=== PATIENT | male | born 1975 | race Caucasian/White ===

== ENCOUNTER 2018-01-19 19:33 | Inpatient (IN) | payer MEDICAID, MEDICARE ==
[2018-01-19 20:21] LABS: ABS Basophils 0.1 10^3/ul (0-0.2); ABS Eosinophils 0.1 10^3/ul (0-0.6); ABS Lymphocytes 2.2 10^3/ul (1.0-4.8); ABS Monocytes 0.4 10^3/ul (0-0.8); ABS Neutrophils 4.6 10^3/ul (1.5-7.7); ABS Nucleated RBC 0 10^3/ul; Eosinophil % 1.8 % (0-6); Hematocrit 38 % (42-52); Hemoglobin 13.6 g/dl (14.0-18.0); Lymphocyte % 29.6 % (25-47); Mean Corpuscular HGB Conc 36 g/dl (31-36); Mean Corpuscular Hemoglobin 35 pg (27-31); Mean Corpuscular Volume 97 fL (80-94); Mean Platelet Volume 7.2 um3 (7.4-10.4); Nucleated Red Blood Cells % 0.1; Platelet Count 206 10^3/ul (150-450); Red Blood Count 3.93 10^6/ul (4.00-5.40); Red Cell Distribution Width 13 % (10.5-15); White Blood Count 7.4 10^3/ul (3.5-10.8)
--- NOTE | 2018-01-19 20:22 | ED ---
Psychiatric Complaint - HPI Summary HPI Summary: This patient is a 42 year old M presenting to [facility] with a chief complaint of depression for 1.5 years. He endorses recent insomnia, and feels subjectively ( he) is functioning less and less well. He also endorses racing and tangential thinking, visual hallucinations, paranoia, delusions, and SI with a borderline plan to walk on the edge of a bridge for shits and giggles. He denies HI .PMHx bipolar disorder, anxiety, but no Rx since 3 or 4 years ago; he stopped because he felt he was overmedicated. PT denies PMHx HTN, DM. He claims he drank a beer before he came in to the ED today. He notes he is a heavy smoker. - History Of Current Complaint Chief Complaint: EDMentalHealth Time Seen by Provider: 01/19/18 20:00 Hx Obtained From: Patient Onset/Duration: Gradual Onset, Lasting Weeks, Still Present Timing: Constant Severity Initially: Mild Severity Currently: Mild Character: Manic, Depressed, Anxious Aggravating Factor(s): Medication Non-compliance Alleviating Factor(s): Nothing Associated Signs And Symptoms: Positive: Hallucinating, Paranoid Behavior, Sleep Disturbance Related History: Positive For: Prior Psychiatric Issues Has Suicidal: Reports: Thoughts, With A Plan Has Homicidal: Denies: Thoughts - Allergies/Home Medications Allergies/Adverse Reactions: Allergies Allergy/AdvReac Type Severity Reaction Status Date / Time No Known Allergies Allergy Verified 01/19/18 19:48 PMH/Surg Hx/FS Hx/Imm Hx Endocrine/Hematology History: Denies: Hx Sickle Cell Disease Cardiovascular History: Denies: Hx Pacemaker/ICD Respiratory History: Denies: Hx Lung Cancer GI History: Denies: Hx Ileostomy History: Denies: Hx Dialysis Musculoskeletal History: Denies: Hx Osteoporosis Sensory History: Denies: Hx Legally Blind, Hx Deafness Opthamlomology History: Denies: Hx Legally Blind EENT History: Denies: Hx Deafness Neurological History: Denies: Hx Dementia Psychiatric History: Reports: Hx Anxiety, Hx Bipolar Disorder Infectious Disease History: No Infectious Disease History: Denies: Traveled Outside the [place] in Last 30 Days - Social History Lives: Alone Review of Systems Negative: Fever Positive: no symptoms reported Positive: Depressed, Other - SI, hallucinations, delusions, tangential and racing thoughts. All Other Systems Reviewed And Are Negative: Yes Physical Exam - Summary Physical Exam Summary: Appearance: Well appearing, no pain distress Skin: warm, dry, reflects adequate perfusion Head/face: normal Eyes: EOMI, JILL ENT: normal Neck: supple, non-tender Respiratory: CTA, breath sounds present Cardiovascular: RRR, pulses symmetrical Abdomen: non-tender, soft Bowel: present Musculoskeletal: normal, strength/ROM intact Neuro: normal, sensory motor intact, A&Ox3 PSYCH: depressed affect Triage Information Reviewed: Yes Vital Signs On Initial Exam: Initial Vitals Temp Pulse Resp BP Pulse Ox 99.1 F 84 16 155/94 97 01/19/18 19:43 01/19/18 19:43 01/19/18 19:43 01/19/18 19:43 01/19/18 19:43 Vital Signs Reviewed: Yes Diagnostics - Vital Signs Vital Signs Temp Pulse Resp BP Pulse Ox 01/19/18 19:43 99.1 F 84 16 155/94 97 - Laboratory Result Diagrams: 01/19/18 20:12 01/19/18 20:12 Lab Statement: Any lab studies that have been ordered have been reviewed, and results considered in the medical decision making process. Course/Dx - Course Course Of Treatment: A 42-year-old M presents to the ED with a CC of depression for 1.5 years. (+) SI, visual hallucinations, confusion, tangential thinking, racing thoughts, paranoia, delusions. (-) HI. PMHx bipolar disorder, anxiety. - Differential Dx/Clinical Impression Differential Diagnosis/HQI/PQRI: Positive: Depression, Suicidal Ideation Provider Diagnosis: Depression, Suicidal ideation Discharge - Sign-Out/Discharge Documenting (check all that apply): Sign-Out Patient Signing out patient TO: Abel Irwin - [facility] - Discharge Plan - Attestation Statements Document Initiated by Scribe: Yes Documenting Scribe: Clay Bazan Provider For Whom Tosha is Documenting (Include Credential): Dr. Young Watts MD Scribe Attestation: Clay Diana, scribed for Dr. Young Watts MD on 01/19/18 at 2144. Scribe Documentation Reviewed: Yes Provider Attestation: The documentation as recorded by the Clay martinez accurately reflects the service I personally performed and the decisions made by , Dr. Young Watts MD
[2018-01-19 20:40] LABS: EGFR Non-African American 88.7 (>60)
[2018-01-19 21:53] LABS: Urine Appearance Clear; Urine Blood Negative (Negative); Urine Color Yellow; Urine Ketones Negative (Negative); Urine Protein Negative (Negative); Urine Specific Gravity 1.019 (1.010-1.030); Urine Urobilinogen Negative (Negative)
[2018-01-20] MEDS ORDERED: hydrOXYzine HCL TAB* 50 MG PO PRN (15:30)
[2018-01-20] MEDS ORDERED: Mouth Piece, Nicotine* 1 EACH CARTRIDGE INH SCH (15:54)
--- NOTE | 2018-01-20 16:01 | HP ---
H&P (Free Text) History and Physical: JUSTIFICATION FOR ADMISSION: Patient presented to emergency room with disorganized and delusional thinking, irritable and unable to care for self. He requires inpatient psychiatric admission in order to provide treatment and stabilization as he is a danger to himself. Source Of information: Patient, chart CHIEF COMPLAINT: "I could not function out there HISTORY OF THE PRESENT ILLNESS: Patient is a 42 y/o male, single, living in a van, on the road, unemployed, with history of Bipolar disorder. Patient was admitted to inpatient unit for worsening of manic symptoms with disorganized and delusional thinking. Patient has been non-compliant with his treatment since 2012. Patient reportedly was doing fair until recently when he lost his residence and work has been going through major difficulties in his life. Patient reported having residual symptoms of Bipolar Disorder which has worsened in last few months. Patient was in the town of [place] in search of work but was unable to function. Patient has been fluctuating between depressions, ayaka and worsening of psychotic symptoms with disorganized thinking and paranoia. Patient self-presented to E.D for further treatment. Patient denied any suicidal at this time but do get it intermittently when depressed but no intent or plan. Patient reported no homicidal ideation on the unit. Patient continued to exhibit behavior that is unpredictable and reportedly this morning required multiple redirections as he was intrusive and getting into his roommates belongings. PAST PSYCHIATRIC HISTORY: Patient has history of multiple inpatient psychiatric hospitalization but was not forthcoming with details but did report last one was in 2008. Patient has history of outpatient psychiatric treatment for his Bipolar Disorder. Patients medications have been [place], Lamictal and also have been on antipsychotic. Patient was not happy with antipsychotics because of its side effect profile but agree to take it for short term. Patient reports once he had cut himself around eye brow area and face when he was intoxicated with alcohol and fined it out when he woke up with blood around him. Patient otherwise did reports periodic suicidal thoughts but not report of any suicidal intent or plan even during that time and was surprised that he did that. Patient has history of suicidal thoughts but no attempt or plan. Patient has history of no homicidal threats, no intent or attempt. Patient has history of aggressive and agitated behavior when decompensates. No access to firearm reported. SUBSTANCE ABUSE HISTORY: Patient uses Alcohol infrequently and has not used it for about last one month. But patient did report in the E.D that he has used it before presentation to E.D. Patient BAL was <10 and urine toxicology was negative. Patient was not cooperative with other substance abuse history and treatment. PAST MEDICAL HISTORY: No active medical problems ALLERGIES: NKA FAMILY PSYCHIATRIC HISTORY: Patient has unknown family history of psychiatric illness. FAMILY/PSYCHOSOCIAL HISTORY: Patient currently lives in [place] and reports last stable living condition was about 2 months ago. Patient would not disclose further information about his previous residence. Patient reports being on the road was about 2 months ago and came to [place] in search of work. Patient is not . Patient is not sure but was told by a female that he was with in the past that he might be the father of her child. Patient education level is some college. Patient was not cooperative with his family history. Patient reports being on his own for now and did not give out any information on support system but did report at one time about his interaction with father that treated his brother better than him. REVIEW OF SYSTEMS: Patients review of symptoms was negative for any physical complaint. But patients vital sign has been stable. Patients ED physical exam was reviewed which is grossly normal with no active medical problem. Physical Exam Summary: Appearance: Well appearing, no pain distress Skin: warm, dry, reflects adequate perfusion Head/face: normal Eyes: EOMI, JILL ENT: normal Neck: supple, non-tender Respiratory: CTA, breath sounds present Cardiovascular: RRR, pulses symmetrical Abdomen: non-tender, soft Bowel: present Musculoskeletal: normal, strength/ROM intact Neuro: normal, sensory motor intact, A&Ox3 MENTAL STATUS EXAMINATION: Appearance: patient is 42 y/o male, wearing hospital gown, making intermittent eye contact, fair hygiene, disheveled. Behavior: disorganized needs redirections Gait: normal Abnormal motor activity: restless, but no abnormal movement Speech: rapid, over productive, but normal volume and tone Mood: not good Affect: Affect was labile, irritable Thought process: tangential to circumstantial Thought Content: Suicidal/Homicidal ideation: denied at the time of evaluation Delusions: paranoid Obsessions: none Phobia: none Perceptual disturbance: none at time of evaluation Attention: limited Orientation: grossly intact Concentration: limited Memory: was guarded, hence unable to assess that well Insight: poor Judgment: poor Impulse control: fair during evaluation IMPRESSION: Patient with history of Bipolar Disorder. Patient currently admitted due to worsening of his manic symptoms and disorganized and delusional thinking. Patient has not been on any treatment for last few years and also struggles with his current psychosocial stressors including homelessness and unemployment. Patient is a danger to self and others if discharged hence will be stabilized on inpatient unit with medication adjustments and therapy. DIAGNOSES: Bipolar Disorder, current episode manic with psychotic features Prov : Schizoaffective Disorder Bipolar type PLAN: Admit to [facility] on Q 15 min observation. Patient is full code. Patient is on involuntary admission status Integrate patient into the milieu Individual and group psychotherapy MMPI and psychological consult with Dr. Beatty. Social work consult for therapy and discharge planning Patient gave informed consent to start the following medications: Patient was started on [place] 450 mg BID with plan to obtain [place] level on Tuesday morning. Patient was also started on Zyprexa 10 mg QHS to help with insomnia and delusional and disorganized thinking. Also hydroxyzine was started 50 mg PO Q6HRS PRN for anxiety and insomnia. Will continue to monitor and f/u for improvement and side effects. Keshav Elizabeth MD Attending Psychiatrist
[2018-01-20] MEDS: Lithium Carbonate TAB* 300 MG PO SCH ×2 (18:19→21:31)
[2018-01-20] MEDS ORDERED: Lithium Carbonate TAB* 300 MG PO SCH (21:00)
[2018-01-20] MEDS ORDERED: Nicotine Patch Removal NOTE PATCH OFF SCH (21:00)
[2018-01-20] MEDS: OLANzapine TAB* 10 MG PO SCH (21:31)
[2018-01-21] MEDS ORDERED: Nicotine PATCH 7 MG/24 HR* PATCH TRANSDERM SCH (08:00)
[2018-01-21] MEDS: Lithium Carbonate TAB* 300 MG PO SCH ×2 (08:52→21:43)
--- NOTE | 2018-01-21 17:04 | PN ---
Subjective - Subjective Date of Service: 01/21/18 Service Type: 87120 Hosp care 15 min low complexity Subjective: Juan Alberto continues to be symptomatic and staying to self in his room most of the time. Reports that his anxiety is somewhat better and he slept better last night. Mind is still racing but better then yesterday. Denies hallucinations, delusions, SI or HI. Tolerating mood stabilizer well. Objective - Appearance Appearance: Healthy Appearing Dysmorphic Features: No Hygiene: Normal Grooming: Disheveled - Behavior Psychomotor Activities: Normal Exhibits Abnormal Movement: No - Attitude and Relatedness Attitude and Relatedness: Cooperative Eye Contact: Fair - Speech Quality: Pressured Latencies: Short Quantity: Terse - Mood Patient's Decription of Mood: "Fine" - Affect Observed Affect: Good Affect Consistent with: Dysphoria - Thought Process Patient's Thought Process: Coherent, Circumstantial Thought Content: No Passive Wish, No Suicidal Planning, No Homicidal Ideation, No Paranoid Ideation - Sensorium Experiencing Hallucinations: No, Sensorium is Clear Type of Hallucinations: Visual: No, Auditory: No, Command: No - Level of Consciousness Level of Consciousness: Alert Orientation: Yes Intact, Yes Orientated to Time, Yes Orientated to Place, Yes Orientated to Person - Impulse Control Impulse Control: Tenuous - Insight and Judgement Insight and Judgement: Fair - Group Participation Particating in Group Activities: No - Medication Management Medication Management Adherence: Yes Assessment - Assessment Merits Inpatient Hospitalization: For Immediate Safety, For Stabilization, For Discharge Planning Clinical Impression: Still symptomatic but improving on current meds. Plan - Plan Treatment Plan: Name: JUAN ALBERTO CHEUNG Birthdate: 1975 [id number] Continued Medication Management: Continue Outpt Medication Medications: Current Medications Acetaminophen (Tylenol Tab*) 650 mg PO Q6H PRN PRN Reason: PAIN Device (Nicotine Mouth Piece*) 1 each INH .[facility] Hydroxyzine HCl (Atarax Tab*) 50 mg PO Q6H PRN PRN Reason: ANXIETY Yeguada Carbonate (Yeguada Carbonate Tab*) 450 mg PO BID [facility] Last Admin: 01/21/18 08:52 Dose: 450 mg Nicotine (Nicotine Inhaler*) 10 mg INH Q2H PRN PRN Reason: CRAVING Olanzapine (Zyprexa Tab*) 10 mg PO BEDTIME [facility] Last Admin: 01/20/18 21:31 Dose: 10 mg - Discharge Plan Discharge Plan: Outpatient Follow Up Outpatient Program: [facility]
[2018-01-21] MEDS: OLANzapine TAB* 10 MG PO SCH (21:44)
[2018-01-22] MEDS: Lithium Carbonate TAB* 300 MG PO SCH ×2 (09:33→19:47)
[2018-01-22] MEDS: Nicotine Inhaler* 10 MG AMP INH PRN (19:47)
[2018-01-22] MEDS: OLANzapine TAB* 10 MG PO SCH (19:50)
[2018-01-23] MEDS: Nicotine Inhaler* 10 MG AMP INH PRN ×2 (09:14→15:58)
[2018-01-23] MEDS: Lithium Carbonate TAB* 300 MG PO SCH ×2 (09:15→20:37)
[2018-01-23] MEDS: Acetaminophen TAB* 325 MG PO PRN (17:53)
--- NOTE | 2018-01-23 18:08 | PN ---
Subjective - Subjective Date of Service: 01/23/18 Service Type: 31691 Hosp care 15 min low complexity Subjective: Juan Alberto reportedly refused his HS Zyprexa last night citing that he didn't need it any longer as he sleeps fine while he continues to be hypomanic. Education provided and will see if he refuses tonight. Objective - Appearance Appearance: Well Developed/Nourished Dysmorphic Features: No Hygiene: Normal Grooming: Fairly Well Kept - Behavior Psychomotor Activities: Abnormal-Increased Exhibits Abnormal Movement: No - Attitude and Relatedness Attitude and Relatedness: Guarded Eye Contact: Fair - Speech Quality: Pressured Latencies: Short Quantity: Appropriate - Mood Patient's Decription of Mood: "Great" - Affect Observed Affect: Expansive - Thought Process Patient's Thought Process: Coherent, Filght of Ideas, Circumstantial Thought Content: No Passive Wish, No Suicidal Planning, No Homicidal Ideation, No Paranoid Ideation - Sensorium Experiencing Hallucinations: No, Sensorium is Clear Type of Hallucinations: Visual: No, Auditory: No, Command: No - Level of Consciousness Level of Consciousness: Alert Orientation: Yes Intact, Yes Orientated to Time, Yes Orientated to Place, Yes Orientated to Person - Impulse Control Impulse Control: Intact - Insight and Judgement Insight and Judgement: Poor - Group Participation Particating in Group Activities: No - Medication Management Medication Management Adherence: Partial Assessment - Assessment Merits Inpatient Hospitalization: For Stabilization, For Discharge Planning Clinical Impression: Still symptomatic but improving on current meds. Plan - Plan Treatment Plan: Name: JUAN ALBERTO CHEUNG Birthdate: 1975 [id number] Continued Medication Management: Continue Outpt Medication Medications: Current Medications Acetaminophen (Tylenol Tab*) 650 mg PO Q6H PRN PRN Reason: PAIN Last Admin: 01/23/18 17:53 Dose: 650 mg Device (Nicotine Mouth Piece*) 1 each INH .[facility] Last Admin: 01/22/18 19:48 Dose: 1 each Hydroxyzine HCl (Atarax Tab*) 50 mg PO Q6H PRN PRN Reason: ANXIETY Angelica Carbonate (Angelica Carbonate Tab*) 450 mg PO BID [facility] Last Admin: 01/23/18 09:15 Dose: 450 mg Nicotine (Nicotine Inhaler*) 10 mg INH Q2H PRN PRN Reason: CRAVING Last Admin: 01/23/18 15:58 Dose: 10 mg Olanzapine (Zyprexa Tab*) 10 mg PO BEDTIME [facility] Last Admin: 01/22/18 19:50 Dose: Not Given - Discharge Plan Discharge Plan: Outpatient Follow Up Outpatient Program: [facility]
[2018-01-23] MEDS: OLANzapine TAB* 10 MG PO SCH (20:37)
[2018-01-24] MEDS: Acetaminophen TAB* 325 MG PO PRN (07:35)
[2018-01-24] MEDS: Lithium Carbonate TAB* 300 MG PO SCH ×2 (09:38→20:49)
[2018-01-24] MEDS: Nicotine Inhaler* 10 MG AMP INH PRN ×2 (11:42→17:21)
--- NOTE | 2018-01-24 14:40 | PN ---
Subjective - Subjective Date of Service: 01/24/18 Service Type: 25495 Hosp care 15 min low complexity Subjective: Patient was seen by self, discussed with treatment team, chart was reviewed. Patient has been partially compliant with his medications. Patient has been taking [place] but refusing on Zyprexa, no reported side effects. Patient reportedly has paranoia, trust issues and is guarded about her past history and current details. patient mood and behavior has been in better control. Patient thinking is less disorganized and less delusional. Patient has been resistant to provide information about his previous treatment facilities and states that he was functioning fine for years without any medication. Patient has been resistant and states that he can bring in records from the hospital that he was diagnosed as panic attacks and PTSD and has kept those papers with him. Patient was resistant to sign any release of information to communicate with family as well. Although after multiple attempts to educate patient stated that he does not feel comfortable with his father around and is an adult. Patient feels that meeting him at the hospital or communicating with him is stressful but did agree if mother can come to the hospital he will be fine. Patient reports that even than it is better he they have no involvement during this hospitalization. Patient do report that he keeps communication with parents and can go visit them after discharge from the hospital. Patient also states that he needed a place to rest that is why he came to the hospital and was not sleeping for few days that triggered his symptoms. Patient sleeping has been better on the unit. Patient eating has been fair. Patient has been cooperative with staff. Patient has been reporting no suicidal or homicidal ideation. No psychotic symptoms of hallucinations. Patient agreed for blood work tomorrow morning. Objective - Appearance Appearance: Healthy Appearing Dysmorphic Features: No Hygiene: Normal Grooming: Fairly Well Kept - Behavior Psychomotor Activities: Normal Exhibits Abnormal Movement: No - Attitude and Relatedness Attitude and Relatedness: Cooperative Eye Contact: Fair - Speech Quality: Unpressured Latencies: Normal Quantity: Appropriate - Mood Patient's Decription of Mood: "Fine" - Affect Observed Affect: Fair Affect Consistent with: Euthymia - Thought Process Patient's Thought Process: Goal Directed - more organized Thought Content: No Passive Wish, No Suicidal Planning, No Homicidal Ideation, No Paranoid Ideation - Sensorium Experiencing Hallucinations: No, Sensorium is Clear Type of Hallucinations: Visual: No, Auditory: No, Command: No - Level of Consciousness Level of Consciousness: Alert Orientation: Yes Intact, Yes Orientated to Time, Yes Orientated to Place, Yes Orientated to Person - Impulse Control Impulse Control: Intact - Insight and Judgement Insight and Judgement: Poor - but improving - Group Participation Particating in Group Activities: No - Medication Management Medication Management Adherence: Yes - improving Assessment - Assessment Merits Inpatient Hospitalization: For Immediate Safety, For Stabilization, For Discharge Planning Inpatient DSM-V Dx: F31.2 Clinical Impression: Patient with history of Bipolar Disorder. Patient currently admitted due to worsening of his manic symptoms and disorganized and delusional thinking. Patient has not been on any treatment for last few years and also struggles with his current psychosocial stressors including homelessness and unemployment. Patient is a danger to self and others if discharged hence will be stabilized on inpatient unit with medication adjustments and therapy. Plan - Plan Treatment Plan: Name: ONESIMO CHEUNG Birthdate: 1975 [id number] - Patient continues to be hospitalized due to manic episode, psychosis, mood instability, anxiety and impulsivity. - Patient's medications were adjusted after informed consent with continuation of [place] at 450 mg BID will obtain [place] level tomorrow with Renal function and TSH. Also Zyprexa was reduced to 2.5 mg HS as patient has been resistant to it. - Patient will be monitored for improvement and side effects. Risk and benefits were discussed. - Patient was encouraged to participate in the milieu, group and individual therapy. Medications: Current Medications Acetaminophen (Tylenol Tab*) 650 mg PO Q6H PRN PRN Reason: PAIN Last Admin: 01/24/18 07:35 Dose: 650 mg Device (Nicotine Mouth Piece*) 1 each INH [facility] Last Admin: 01/22/18 19:48 Dose: 1 each Hydroxyzine HCl (Atarax Tab*) 50 mg PO Q6H PRN PRN Reason: ANXIETY [place] Carbonate ([place] Carbonate Tab*) 450 mg PO BID [facility] Last Admin: 01/24/18 09:38 Dose: 450 mg Nicotine (Nicotine Inhaler*) 10 mg INH Q2H PRN PRN Reason: CRAVING Last Admin: 01/24/18 11:42 Dose: 10 mg Olanzapine (Zyprexa Tab*) 2.5 mg PO BEDTIME [facility]
[2018-01-24 17:26] LABS: Lithium 0.32 mmol/L (0.6-1.2)
[2018-01-24] MEDS: OLANzapine TAB* 2.5 MG PO SCH (20:49)
[2018-01-25] MEDS: Lithium Carbonate TAB* 300 MG PO SCH ×2 (09:26→20:04)
[2018-01-25] MEDS: Nicotine Inhaler* 10 MG AMP INH PRN ×2 (09:56→17:47)
--- NOTE | 2018-01-25 11:49 | PN ---
Subjective - Subjective Date of Service: 01/25/18 Service Type: [id number] [facility] care 15 min low complexity Subjective: Patient was seen by self, discussed with treatment team, chart was reviewed. Patient reports being compliant with his medications but also reports that he has functioned fine in years with out any estimator printing plate making medication. Patient questions his need to be n medications for long-term and will work with outpatient therapist and psychiatrist to work on that. Patient report he is listening to senior grant writer advice more and is taking both his [employer] and Zyprexa, no reported side effects. Patient [employer] level was below therapeutic range. But patient symptoms has reportedly shown progressive improvement, less paranoia, more cooperative with his history and treatment and attending some groups. Patient is more organized and is willing to go to his parents place and meets his mother. Patient has estranged relationship with his father because of his rigidity. Patient has signed release of information to speak to his previous therapist and would like to return back to the clinic and also agreed to make an appointment with a psychiatrist at the clinic. Patient sleeping has been better on the unit. Patient eating has been fair. Patient has been cooperative with staff. Patient has been reporting no suicidal or homicidal ideation. No psychotic symptoms of hallucinations or other delusional belief. Objective - Appearance Appearance: Healthy Appearing Dysmorphic Features: No Hygiene: Normal Grooming: Fairly Well Kept - Behavior Psychomotor Activities: Normal Exhibits Abnormal Movement: No - Attitude and Relatedness Attitude and Relatedness: Cooperative Eye Contact: Fair - Speech Quality: Unpressured Latencies: Normal Quantity: Appropriate - Mood Patient's Decription of Mood: "Fine" - Affect Observed Affect: Fair Affect Consistent with: Euthymia - Thought Process Patient's Thought Process: Goal Directed Thought Content: No Passive Wish, No Suicidal Planning, No Homicidal Ideation, No Paranoid Ideation - improved - Sensorium Experiencing Hallucinations: No, Sensorium is Clear Type of Hallucinations: Visual: No, Auditory: No, Command: No - Level of Consciousness Level of Consciousness: Alert Orientation: Yes Intact, Yes Orientated to Time, Yes Orientated to Place, Yes Orientated to Person - Impulse Control Impulse Control: Intact - Insight and Judgement Insight and Judgement: Fair - Group Participation Particating in Group Activities: Yes - Medication Management Medication Management Adherence: Yes Assessment - Assessment Merits Inpatient Hospitalization: For Immediate Safety, For Stabilization, For Discharge Planning Inpatient DSM-V Dx: F31.2 Clinical Impression: Patient with history of Bipolar Disorder. Patient currently admitted due to worsening of his manic symptoms and disorganized and delusional thinking. Patient has not been on any treatment for last few years and also struggles with his current psychosocial stressors including homelessness and unemployment. Patient is a danger to self and others if discharged hence will be stabilized on inpatient unit with medication adjustments and therapy. Plan - Plan Treatment Plan: Name: ONESIMO CHEUNG Birthdate: 1975 [id number] - Patient continues to be hospitalized due to manic episode, psychosis, mood instability, anxiety and impulsivity. - Patient's medications were adjusted after informed consent with continuation of [employer] at 450 mg BID and Zyprexa at 2.5 mg HS. - Patient will be monitored for improvement and side effects. Risk and benefits were discussed. - Patient was encouraged to participate in the milieu, group and individual therapy. Medications: Current Medications Acetaminophen (Tylenol Tab*) 650 mg PO Q6H PRN PRN Reason: PAIN Last Admin: 01/24/18 07:35 Dose: 650 mg Device (Nicotine Mouth Piece*) 1 each INH [facility] Last Admin: 01/22/18 19:48 Dose: 1 each Hydroxyzine HCl (Atarax Tab*) 50 mg PO Q6H PRN PRN Reason: ANXIETY [employer] Carbonate ([employer] Carbonate Tab*) 450 mg PO BID [facility] Last Admin: 01/25/18 09:26 Dose: 450 mg Nicotine (Nicotine Inhaler*) 10 mg INH Q2H PRN PRN Reason: CRAVING Last Admin: 01/25/18 09:56 Dose: 10 mg Olanzapine (Zyprexa Tab*) 2.5 mg PO BEDTIME [facility] Last Admin: 01/24/18 20:49 Dose: 2.5 mg
[2018-01-25] MEDS: OLANzapine TAB* 2.5 MG PO SCH (20:04)
[2018-01-26 07:56] VITALS: BP 150/91
[2018-01-26] MEDS: Lithium Carbonate TAB* 300 MG PO SCH (08:57)
[2018-01-26] MEDS: Nicotine Inhaler* 10 MG AMP INH PRN (09:51)
--- NOTE | 2018-01-26 10:25 | ED ---
Course/Dx - Course Course Of Treatment: A 42-year-old M presents to the ED with a CC of depression for 1.5 years. (+) SI, visual hallucinations, confusion, tangential thinking, racing thoughts, paranoia, delusions. (-) HI. PMHx bipolar disorder, anxiety. - Diagnoses Provider Diagnoses: Depression, Suicidal ideation Discharge - Sign-Out/Discharge Documenting (check all that apply): Patient Departure - Discharge Plan Condition: Fair Disposition: ADMITTED TO [facility] - Billing Disposition and Condition Condition: FAIR Disposition: Admitted to [facility] - Attestation Statements Document Initiated by Scribe: No
--- NOTE | 2018-01-26 13:14 | DS ---
Subjective - Subjective Service Types: [id number] [facility] Day Mgmt simple under 30 min Discharge Date: 01/26/18 Subjective: JUSTIFICATION FOR ADMISSION: Patient presented to emergency room with disorganized and delusional thinking, irritable and unable to care for self. He requires inpatient psychiatric admission in order to provide treatment and stabilization as he is a danger to himself. Source Of information: Patient, chart CHIEF COMPLAINT: "I could not function out there HISTORY OF THE PRESENT ILLNESS: Patient is a 42 y/o male, single, living in a van, on the road, unemployed, with history of Bipolar disorder. Patient was admitted to inpatient unit for worsening of manic symptoms with disorganized and delusional thinking. Patient has been non-compliant with his treatment since 2012. Patient reportedly was doing fair until recently when he lost his residence and work has been going through major difficulties in his life. Patient reported having residual symptoms of Bipolar Disorder which has worsened in last few months. Patient was in the town of [place] in search of work but was unable to function. Patient has been fluctuating between depressions, ayaka and worsening of psychotic symptoms with disorganized thinking and paranoia. Patient self-presented to E.D for further treatment. Patient denied any suicidal at this time but do get it intermittently when depressed but no intent or plan. Patient reported no homicidal ideation on the unit. Patient continued to exhibit behavior that is unpredictable and reportedly this morning required multiple redirections as he was intrusive and getting into his roommates belongings. PAST PSYCHIATRIC HISTORY: Patient has history of multiple inpatient psychiatric hospitalization but was not forthcoming with details but did report last one was in 2008. Patient has history of outpatient psychiatric treatment for his Bipolar Disorder. Patients medications have been Cobden, Lamictal and also have been on antipsychotic. Patient was not happy with antipsychotics because of its side effect profile but agree to take it for short term. Patient reports once he had cut himself around eye brow area and face when he was intoxicated with alcohol and fined it out when he woke up with blood around him. Patient otherwise did reports periodic suicidal thoughts but not report of any suicidal intent or plan even during that time and was surprised that he did that. Patient has history of suicidal thoughts but no attempt or plan. Patient has history of no homicidal threats, no intent or attempt. Patient has history of aggressive and agitated behavior when decompensates. No access to firearm reported. SUBSTANCE ABUSE HISTORY: Patient uses Alcohol infrequently and has not used it for about last one month. But patient did report in the E.D that he has used it before presentation to E.D. Patient BAL was <10 and urine toxicology was negative. Patient was not cooperative with other substance abuse history and treatment. PAST MEDICAL HISTORY: No active medical problems ALLERGIES: NKA FAMILY PSYCHIATRIC HISTORY: Patient has unknown family history of psychiatric illness. FAMILY/PSYCHOSOCIAL HISTORY: [place] reports last stable living condition was about 2 months ago. Patient would not disclose further information about his previous residence. Patient reports being on the road was about 2 months ago and came to [place] in search of work. Patient is not . Patient is not sure but was told by a female that he was with in the past that he might be the father of her child. Patient education level is some college. Patient was not cooperative with his family history. Patient reports being on his own for now and did not give out any information on support system but did report at one time about his interaction with father that treated his brother better than him. REVIEW OF SYSTEMS: Patients review of symptoms was negative for any physical complaint. But patients vital sign has been stable. Patients ED physical exam was reviewed which is grossly normal with no active medical problem. Physical Exam Summary: Appearance: Well appearing, no pain distress Skin: warm, dry, reflects adequate perfusion Head/face: normal Eyes: EOMI, JILL ENT: normal Neck: supple, non-tender Respiratory: CTA, breath sounds present Cardiovascular: RRR, pulses symmetrical Abdomen: non-tender, soft Bowel: present Musculoskeletal: normal, strength/ROM intact Neuro: normal, sensory motor intact, A&Ox3 MENTAL STATUS EXAMINATION ON ADMISSION: Appearance: patient is 42 y/o male, wearing hospital gown, making intermittent eye contact, fair hygiene, disheveled. Behavior: disorganized needs redirections Gait: normal Abnormal motor activity: restless, but no abnormal movement Speech: rapid, over productive, but normal volume and tone Mood: not good Affect: Affect was labile, irritable Thought process: tangential to circumstantial Thought Content: Suicidal/Homicidal ideation: denied at the time of evaluation Delusions: paranoid Obsessions: none Phobia: none Perceptual disturbance: none at time of evaluation Attention: limited Orientation: grossly intact Concentration: limited Memory: was guarded, hence unable to assess that well Insight: poor Judgment: poor Impulse control: fair during evaluation DIAGNOSES ON ADMISSION: Bipolar Disorder, current episode manic with psychotic features Prov: Schizoaffective Disorder Bipolar type Objective - Appearance Appearance: Healthy Appearing Dysmorphic Features: No Hygiene: Normal Grooming: Fairly Well Kept - Behavior Psychomotor Activities: Normal Exhibits Abnormal Movement: No - Attitude and Relatedness Attitude and Relatedness: Cooperative Eye Contact: Fair - Speech Quality: Unpressured Latencies: Normal Quantity: Appropriate - Mood Patient's Decription of Mood: "Good" - Affect Observed Affect: Fair Affect Consistent with: Euthymia - Thought Process Patient's Thought Process: Coherent, Circumstantial Thought Content: No Passive Wish, No Suicidal Planning, No Homicidal Ideation, No Paranoid Ideation - Sensorium Experiencing Hallucinations: No, Sensorium is Clear Type of Hallucinations: Visual: No, Auditory: No, Command: No - Level of Consciousness Level of Consciousness: Alert Orientation: Yes Intact, Yes Orientated to Time, Yes Orientated to Place, Yes Orientated to Person - Impulse Control Impulse Control: Intact - Insight and Judgement Insight and Judgement: Fair - Medication Management Medication Management Adherence: Yes Treatment Course & Assessment Clinical Course & Impression: Patient is 42 y/o male with history of Bipolar Disorder. Patient currently admitted due to worsening of his manic symptoms and disorganized and delusional thinking. Patient has not been on any treatment for last few years and also struggles with his current psychosocial stressors including homelessness and unemployment. Patient was a danger to self and others if discharged hence was stabilized on inpatient unit with medication adjustments and therapy. Patient was admitted to [facility] on Q 15 min observation under involuntary status. Patient was integrated into the milieu and therapy. Patient gave informed consent to start Cobden 450 mg BID and Zyprexa 10 mg QHS to help with insomnia and delusional and disorganized thinking. Also hydroxyzine was started 50 mg PO Q6HRS PRN for anxiety and insomnia. Patient was monitored and followed up for improvement and side effects. Patient initially continued to be symptomatic, was staying to self in his room most of the time. Patient reported some improvement in anxiety and sleep. His mind was still racing but better. Patient denied hallucinations, delusions, SI or HI. Patient was tolerating mood stabilizer well. Patient later refused his HS Zyprexa citing that he didn't need it any longer as he sleeps fine while he continues to be hypomanic. Patient was taking Cobden but refusing on Zyprexa, no reported side effects. Patient reportedly has chronic trust issues and was guarded about her past history and current details which improved later during the hospitalization. patient mood and behavior was in better control and responding to mood stabilizer. Patient thinking was less disorganized and less delusional. Patient was resistant to provide information about his previous treatment facilities and states that he was functioning fine for years without any medication. Patient was resistant to sign any release of information to communicate with family but later on became more cooperative and was able to trust staff. Patient reports not being comfortable with his father but is fine communicating wit his mother and find her as supportive. Patient do report keeping communication with parents and plans to go visit them after discharge from the hospital. Patient was also interested in following up at outpatient treatment in [place]. Patient's medications were adjusted after informed consent and education with continuation of Cobden at 450 mg BID for mood and agreed to take Zyprexa at 2.5 mg HS to help with sleep and some delusional thinking. Patient was listening to screenplay writer advice more and was taking both his Cobden and Zyprexa, no reported side effects. Patient [place]den level was below therapeutic range. But patient symptoms has reportedly shown progressive improvement, less paranoia, more cooperative with his history and treatment and attending some groups. Patient was more organized and was willing to go to his parents place and meets his mother. Patient sleeping has been better on the unit. Patient eating has been fair. Patient has been cooperative with staff. Patient has been reporting no suicidal or homicidal ideation. No psychotic symptoms of hallucinations or delusional belief other than chronic trust issues. Patient was discussed with team, as he was improving and doing better, wanted to be dsicharged, did not meet criteria for involuntary hospitalization. Patient 's behavior was in good control. Patient mood was stable, not psychotic, not depressed, organized in his thinking and behavior. Patient taking care of him self. Patient was counseled multiple times during this hospitalization regarding alcohol/substance abuse but did not reports any interest and struggle with any. Patient did not agreed with any medication as he dose not believe that he has any current problem related to it. Patient was discharged with plan to follow up outpatient treatment. Patient reported that he will be returning to [place] where his family is and agree to curing pickling packer his prescription from [facility] in [place], [place]. Merits Inpatient Hospitalization: No Clear for Discharge: Adequate Clinical Respons, Acceptable Safety Profile, Low Utility of Inpt Care Inpatient DSM-V Dx: F31.2 Discharge Planning - Discharge Planning Discharge Plan: Outpatient Follow Up Recommendations for Continuing Care: Medication Management, Psychotherapy, Substance Abuse Counseling Medications: Current Medications Cobden Carbonate (Cobden Carbonate Tab*) 450 mg PO BID [facility] Last Admin: 01/26/18 08:57 Dose: 450 mg Olanzapine (Zyprexa Tab*) 2.5 mg PO BEDTIME [facility] Last Admin: 01/25/18 20:04 Dose: 2.5 mg Patient given 2 weeks of prescription. Discharge Planning: Prescriptions provided for discharge [x] Yes [] No Follow up care details as per social work arrangements. Patient response to discharge plan: [x] eager for discharge [] agreeable with discharge plan [] ambivalent about discharge [] disagrees with discharge today
== END 2018-01-26 12:15 | disposition home or self-care (01) | DRG 885 ==
LOC: ED 19:33 → BSU 01-20 00:39
PROVIDERS: ADMIT Psychiatry & Neurology Psychiatry; ATTEND Psychiatry & Neurology Psychiatry
DX: F31.2 Bipolar disorder, current episode manic severe with psychotic features (principal); F41.9 Anxiety disorder, unspecified; G47.00 Insomnia, unspecified; F17.200 Nicotine dependence, unspecified, uncomplicated; Z56.0 Unemployment, unspecified; Z91.19 Patient's noncompliance with other medical treatment and regimen; Z91.5 Personal history of self-harm; Z72.89 Other problems related to lifestyle; Z59.0 Homelessness; Z73.3 Stress, not elsewhere classified
CPT/HCPCS: 36415; 80053; 80061; 80178; 80307; 80320; 80329; 81003; 82565; 83036; 84443; 84520; 85025; 99222; 99231; 99238; 99283; A9270-GY; G0480

== ENCOUNTER 2019-02-22 11:28 | Emergency (ER) | payer MEDICARE, MEDICAID ==
[2019-02-22 11:32] VITALS: BP 133/88
== END 2019-02-22 12:12 | disposition left against medical advice (07) ==
LOC: ED 11:28
DX: Z53.21 Procedure and treatment not carried out due to patient leaving prior to being seen by health care provider (principal); R51 Headache
CPT/HCPCS: 99281